=== PATIENT | female | born 1995 | race Hispanic/Latino ===

== ENCOUNTER 2025-01-02 06:44 | Inpatient (IN) | payer OTHER, SELFPAY ==
[2025-01-02] MEDS: LR 1000 IV (06:50)
[2025-01-02 07:09] VITALS: BP 136/95; BMI 43.5
[2025-01-02] MEDS: SUBLIMAZE 100 MCG EPIDURAL (07:29)
[2025-01-02] MEDS: FENTANYL/BUPIVACAINE 100 EPIDURAL (07:30)
[2025-01-02 08:36] LABS: Hematocrit 35.4 % (37.0-47.0); Hemoglobin 11.5 g/dL (12.0-16.0); Mean Corp Hgb Conc. 32.5 g/dL (33.0-37.0); Mean Corpuscular Volume 82.1 fL (81.0-99.0); Nucleated Red Blood Cells % 0 %; Red Cell Dist. Width 15.2 % (11.5-14.5)
[2025-01-02 08:40] LABS: ALT (SGPT) 11 U/L (0-35); AST (SGOT) 17 U/L (14-36); Albumin 3.5 g/dl (3.5-5.0); Alkaline Phosphatase 274 U/L (38-126); Blood Urea Nitrogen 9 mg/dl (7-17); Calcium 8.7 mg/dl (8.4-10.2); Carbon Dioxide 20 mmol/L (22-30); Chloride 109 mmol/L (98-107); Estimated Creatinine Clearance > 125 ml/min; Glucose 81 mg/dl (70-99); Potassium 4.4 mmol/L (3.5-5.1); Sodium 135 mmol/L (135-145); Total Protein 6.3 g/dl (6.3-8.2); eGFR > 60.00
[2025-01-02] MEDS: PITOCIN 30 UNITS/NSS 500 ML IV (08:50)
[2025-01-02 09:19] LABS: Platelet Count 134 10^3/uL (130-400)
[2025-01-02] MEDS: COLACE 100 MG PO (19:54)
[2025-01-02] MEDS: MOTRIN 600 MG PO (20:16)
[2025-01-03] MEDS: MOTRIN 600 MG PO ×3 (04:34→20:40)
[2025-01-03 04:57] LABS: Hematocrit 31.3 % (37.0-47.0); Hemoglobin 10.5 g/dL (12.0-16.0)
[2025-01-03] MEDS: FEOSOL 325 MG PO (11:50)
[2025-01-03] MEDS: COLACE 100 MG PO ×2 (11:50→20:33)
[2025-01-03] MEDS: TYLENOL 650 MG PO ×2 (11:50→20:41)
[2025-01-03] MEDS: PRENATAL PLUS 1 TABLET PO (11:53)
--- NOTE | 2025-01-04 02:25 | DOWNTIME ---
There was a [employer] Downtime on 01/04/2025 from 0100 to 01/04/2025 at 0220. Downtime documentation of patient's care, including medication administrations, has been reconciled in the electronic record per guidelines. Refer to the
patient's paper chart under the miscellaneous tab to see printed paper medication records and downtime forms.
[2025-01-04] MEDS: MOTRIN 600 MG PO (07:54)
[2025-01-04] MEDS: COLACE 100 MG PO (07:54)
[2025-01-04] MEDS: FEOSOL 325 MG PO (07:54)
[2025-01-04] MEDS: PRENATAL PLUS 1 TABLET PO (07:54)
[2025-01-04 14:19] LABS: Syphilis/T. pallidum Ab Reflex Negative (Negative)
== END 2025-01-04 14:04 | disposition home or self-care (01) | DRG 807 ==
LOC: LDRP 06:44
PROVIDERS: ADMITTING PHYSICIAN Obstetrics & Gynecology; FAMILY PHYSICIAN Family Medicine
PROC: 10E0XZZ Delivery of Products of Conception, External Approach (ICD-10-PCS; 2025-01-02)
DX: O80 Encounter for full-term uncomplicated delivery (principal); Z37.0 Single live birth; Z3A.39 39 weeks gestation of pregnancy
CPT/HCPCS: 80053; 80306; 85014; 85018; 85025; 86780; 86850; 86900; 86901; 88307